=== PATIENT | female | born 1970 | race Caucasian/White ===

== ENCOUNTER → 2017-08-21 | Outpatient (CLI) | payer BC ==
[2017-08-21 11:40] LABS: ALBUMIN 3.4 GM/DL (3.2-5.2); ANION GAP 6 MEQ/L (8-16); BLOOD UREA NITROGEN 9 MG/DL (7-18); CALCIUM LEVEL 8.7 MG/DL (8.5-10.1); CARBON DIOXIDE LEVEL 30 MEQ/L (21-32); CHLORIDE LEVEL 106 MEQ/L (98-107); CREATININE FOR GFR 0.62 MG/DL (0.55-1.02); GLOMERULAR FILTRATION RATE > 60.0 (>58); GLUCOSE, FASTING 114 MG/DL (70-105); PHOSPHORUS LEVEL 2.5 MG/DL (2.5-4.9); POTASSIUM SERUM 3.8 MEQ/L (3.5-5.1); SODIUM LEVEL 142 MEQ/L (136-145)
== END ==
LOC: M LAB 10:05
PROVIDERS: ATTEND Physician Assistant
DX: I11.9 Hypertensive heart disease without heart failure (principal)

== ENCOUNTER → 2018-02-18 | Outpatient (CLI) | payer BC ==
[2018-02-18 09:19] LABS: ALBUMIN 3.6 GM/DL (3.2-5.2); ALKALINE PHOSPHATASE 96 U/L (45-117); ALT/SGPT 39 U/L (12-78); ANION GAP 5 MEQ/L (8-16); AST/SGOT 26 U/L (7-37); BILIRUBIN,TOTAL 0.5 MG/DL (0.2-1.0); BLOOD UREA NITROGEN 12 MG/DL (7-18); CALCIUM LEVEL 8.7 MG/DL (8.5-10.1); CARBON DIOXIDE LEVEL 30 MEQ/L (21-32); CHLORIDE LEVEL 106 MEQ/L (98-107); CHOLESTEROL LEVEL 181 MG/DL (<200); CHOLESTEROL RISK RATIO 3.693 (<5); CREATININE FOR GFR 0.58 MG/DL (0.55-1.30); GLOMERULAR FILTRATION RATE > 60.0 (>58); GLUCOSE, FASTING 103 MG/DL (70-100); HDL CHOLESTEROL 49 MG/DL (>40); LDL CHOLESTEROL 103.4 MG/DL (<100); NON-HDL-C 132 MG/DL; POTASSIUM SERUM 3.9 MEQ/L (3.5-5.1); SODIUM LEVEL 141 MEQ/L (136-145); TOTAL PROTEIN 7.6 GM/DL (6.4-8.2); TRIGLYCERIDES LEVEL 143 MG/DL (<150)
== END ==
LOC: M LAB 08:13
DX: I11.9 Hypertensive heart disease without heart failure (principal); Z13.220 Encounter for screening for lipoid disorders
CPT/HCPCS: 80053

== ENCOUNTER → 2018-10-14 | Outpatient (CLI) | payer BC | LOC: M LRY 12:30 | DX: I42.9 Cardiomyopathy, unspecified (principal); R05 Cough; R06.2 Wheezing | CPT/HCPCS: 71046 ==

== ENCOUNTER → 2019-03-06 | Outpatient (CLI) | payer BC ==
[2019-03-06 09:47] LABS: ALBUMIN 3.7 GM/DL (3.2-5.2); ALT/SGPT 34 U/L (12-78); BILIRUBIN,TOTAL 0.5 MG/DL (0.2-1.0); BLOOD UREA NITROGEN 11 MG/DL (7-18); CALCIUM LEVEL 8.5 MG/DL (8.5-10.1); CARBON DIOXIDE LEVEL 31 MEQ/L (21-32); CHLORIDE LEVEL 104 MEQ/L (98-107); CHOLESTEROL LEVEL 191 MG/DL (<200); CHOLESTEROL RISK RATIO 3.979 (<5); CREATININE FOR GFR 0.61 MG/DL (0.55-1.30); GLOMERULAR FILTRATION RATE > 60.0 (>51); GLUCOSE, FASTING 102 MG/DL (70-100); HDL CHOLESTEROL 48 MG/DL (>40); LDL CHOLESTEROL 117 MG/DL (<100); NON-HDL-C 143 MG/DL; SODIUM LEVEL 139 MEQ/L (136-145); TOTAL PROTEIN 7.1 GM/DL (6.4-8.2); TRIGLYCERIDES LEVEL 129 MG/DL (<150)
== END ==
LOC: M LAB 08:26
PROVIDERS: ATTEND Physician Assistant
DX: I11.9 Hypertensive heart disease without heart failure (principal); Z13.220 Encounter for screening for lipoid disorders

== ENCOUNTER → 2019-04-16 | Outpatient (CLI) | payer BC ==
--- NOTE | 2019-04-16 10:13 | REP ---
Chest x-ray: Two views. History: Dyspnea on exertion. Comparison chest x-ray: October 14, 2018. Findings: The lungs are symmetrically aerated. There is moderate cardiac enlargement. Cardiothoracic ratio is 61.3%. Pulmonary vasculature is cephalized and indistinct. There is moderate degree of acute interstitial edema with Moses B lines. There is some fissural thickening in the minor fissure and subpleural edema is noted producing very slight blunting of the left lateral pleural angle. Findings are consistent with CHF. Impression: CHF pattern with moderate interstitial edema. Very mild left pleural effusion. Pulmonary vascular congestion. Moderate cardiomegaly. Electronically Signed by Crow Wallace MD 04/16/2019 10:04 A
== END ==
LOC: M LRY 09:35
PROVIDERS: ATTEND Nurse Practitioner Family
DX: J81.0 Acute pulmonary edema (principal); J90 Pleural effusion, not elsewhere classified; R09.89 Other specified symptoms and signs involving the circulatory and respiratory systems; I51.7 Cardiomegaly

== ENCOUNTER 2023-09-09 09:57 | Day surgery (SDC) | payer BC ==
[~2023-09-09] VITALS: Ht 165.1 cm; Wt 143.3 kg
[~2023-09-09 09:57] MED LIST: ALBU8.5H INH; BISO10TA14 PO; BUME1TAB3 PO; CLON0.2T PO; CYCLOPENTOLATE 1% OPHTH SOLN 2ML BTL OD SCH; DOXA1TAB40 PO; FLURBIPROFEN 0.03% OPHTH SOLN 2.5 ML OD SCH; IRBE300T7 PO; LIDOCAINE 1% SDV 5ML VIAL As Ordered ONE; LR 1,000 ML IV SCH; MIDAZOLAM INJ 2MG/2ML VIAL As Ordered ONE; PHENYLEPHRINE 2.5% OPHTH SOL 2ML OD SCH; fentaNYL 100 MCG/2 ML INJECTION As Ordered ONE
[2023-09-09] MEDS: TETRACAINE 0.5% OPHTH SOLN 4ML OD SCH ×2 (11:16→12:44)
[2023-09-09] MEDS ORDERED: CEFUROXIME 1MG/0.1ML INTRACAMERAL INJ As Ordered ONE (11:21)
[2023-09-09] MEDS ORDERED: ACETYLCHOLINE OPHTH SOLN 1% 2ML (MIOCHOL-E) As Ordered ONE (12:21)
[2023-09-09] MEDS ORDERED: PROVISC 10 MG/ML 0.85ML SYRINGE As Ordered ONE (12:21)
[2023-09-09 13:03] VITALS: BP 174/89; TEMP 97.3; O2SAT 95
== END 2023-09-09 13:14 | disposition home or self-care (01) ==
LOC: M SDC 09:57
PROVIDERS: ATTEND Ophthalmology
DX: H25.11 Age-related nuclear cataract, right eye (principal); I10 Essential (primary) hypertension; R09.81 Nasal congestion; Z79.899 Other long term (current) drug therapy
CPT/HCPCS: 66984; J0697; J2250; J3010; V2632